=== PATIENT | female | born 1945 | race Caucasian/White ===

== ENCOUNTER 2016-07-06 11:35 | Emergency (ER) | payer MEDICARE ==
[~2016-07-06] VITALS: Ht 157.5 cm; Wt 73.0 kg
[~2016-07-06 11:35] MED LIST: ATOR40TA2 PO; BIOT1TAB14 PO; CALC-140 PO; CYAN100072 PO; FAMO-119 PO; FERR325T5 PO; LSNP10T PO; METF1000 PO; NF-FLON16G NS; NIAC250T8 PO; OMEG1CAP PO; RALO60TA PO; UBID50CA21 PO
--- OUTSIDE RECORDS SUMMARY | 2016-07-06 11:41 | XMS REPORT | Summary of Care ---
Author Author Bozena Antoine, Jethro Organization Unknown Address Unknown Phone Unavailable Care Team Providers [facility] Name Role Phone Merline Sandoval Unavailable Unavailable Bozena Antoine, Jethro Unavailable Unavailable Bozena Antoine, Mihai Unavailable Unavailable Jethro Seals Unavailable Unavailable Unavailable Unavailable Functional Status Name Dates Details Functional status health issues are not documented Status: Name Dates Details Cognitive status health issues are not documented Status: Problems Name Dates Details Seasonal allergies (477.9, J30.2) Status: Active Osteopenia (733.90, M85.80) Status: Active Anemia (285.9, D64.9) Status: Active Macular degeneration of left eye (362.50, H35.30) Status: Active Diabetes mellitus type II, controlled (250.00, E11.9) Status: Active Hypercholesterolemia (272.0, E78.0) Status: Active Diabetic nephropathy (250.40, E11.21) Status: Active Acute conjunctivitis (372.00, H10.30) Status: Active Medications Name Dates Details MetFORMIN HCl - 500 MG Oral Tablet TAKE 1 TABLET DAILY WITH FOOD. Refills: 0 Start Active Singulair 10 MG Oral Tablet TAKE 1 TABLET DAILY DIRECTED. Refills: 0 Start Active Lipitor 40 MG Oral Tablet TAKE 1 TABLET AT BEDTIME. Refills: 0 Start Active Evista 60 MG Oral Tablet TAKE 1 TABLET DAILY. Refills: 0 Start Active Lisinopril 20 MG Oral Tablet TAKE 1 TABLET DAILY DIRECTED. Refills: 0 Start Active Niacin 500 MG Oral Tablet 1/2 tab daily Refills: 0 Start Active Caltrate 600+D 600-800 MG-UNIT Oral Tablet Refills: 0 Start Active Fish Oil 1000 MG Oral Capsule TAKE 1 CAPSULE DAILY. Refills: 0 Start Active Ferrous Sulfate 325 (65 Fe) MG Oral Tablet TAKE 1 TABLET DAILY DIRECTED. Refills: 0 Start Active Macular Vitamin Benefit Oral Tablet TAKE 1 TABLET DAILY. Refills: 0 Start Active Test Strips Check blood sugar twice daily. Quantity: 100 Refills: 3 Mihai Seals M.D. Start Active Polymyxin B-Trimethoprim 66138-0.1 UNIT/ML-% Ophthalmic Solution INSTILL 2 DROPS INTO AFFECTED EYE(S) 4 TIMES DAILY. Quantity: 1 Refills: 0 Merline Sandoval Start Active 10 ML Bottle Allergies and Adverse Reactions Name Dates Details Sulfa Drugs (Allergy) Status: Active Past Medical History Name Dates Details History of Microscopic hematuria (599.72, R31.2) Status: Resolved History of Recurrent nephrolithiasis (592.0, N20.0) Status: Resolved Procedures Procedure Dates Details History of Tonsillectomy With Adenoidectomy Procedures not documented Immunization Name Dates Details Immunizations not documented Family History Name Dates Details Family history of Coronary artery disease (414.00, I25.10) Comments: Family History Status: Active Name Dates Details Family history of Diabetes type 2, controlled (250.00, E11.9) Status: Active Name Dates Details Family history of Diabetes type 2, controlled (250.00, E11.9) Status: Active Name Dates Details Family history of malignant neoplasm of breast (V16.3, Z80.3) Status: Active Social History Name Dates Details - Status: Name Dates Details Never smoker Vital Signs Date Test Result Details No Known Vitals to report Results Date Description Value Details Results not documented Plan of Care Name Dates Details Planned Observations HEMOGLOBIN A1C 3507 On 05-Nov-2015 Intent LIPID PROFILE 1184 On 05-Nov-2015 Intent Planned Goals not documented Planned Encounters Appointment; Provider: Jethro Seals M.D. On 20-Nov-2015 08:00 Instructions Name Dates Details Instructions not documented Encounters Appointment; Jethro Seals M.D. Encounter Diagnosis: Problem not documented On 08:30
--- NOTE | 2016-07-06 11:59 | NUR ---
Redness to left wrist marked with surgical marker by this nurse. Redness measured 9cm x 7cm with initial site measuring 1cm x 0.5cm. Relayed to Dr. Woods.
[2016-07-06] MEDS ORDERED: CLIN-78 PO (12:00)
[2016-07-06] MEDS ORDERED: CLINDAMYCIN 150 MG (CLEOCIN) CAP PO ONE (12:00)
[2016-07-06] MEDS ORDERED: TRM50T PO (12:00)
[2016-07-06 12:08] VITALS: BP 137/61
== END 2016-07-06 12:10 | disposition home or self-care (01) ==
LOC: EDUNIT# 11:35 → ED 11:37
DX: L03.114 Cellulitis of left upper limb (principal)
CPT/HCPCS: 99282; A9270